=== PATIENT | male | born 1960 | race Caucasian/White ===

== ENCOUNTER 2017-02-10 01:57 | Emergency (ER) | payer SELFPAY ==
[2017-02-10 02:08] VITALS: BP 106/74; PULSE 84; RESP 16; TEMP 97.9; O2SAT 96
--- NOTE | 2017-02-10 02:09 | EDPHY ---
H & P Time Seen by Provider: 02/10/17 02:06 HPI/ROS: Chief Complaint: Dog bite right calf HPI: 56-year-old male states that about 6 hours ago he was dancing outside of the [employer] when he was bit on the calf by a dog. Does not know the dog or the gaggerman. He was hoping that they would return and he could ask him about the animal but they did not do so. He eventually ended up calling 911 so that he could report this. Denies any fevers or chills. For the ambulating. History of bipolar disorder but does not take any prescription medications but his last tetanus was in the last 10 years. ROS: 10 point Review of Systems is negative except as noted in the HPI. PMH: Bipolar disorder Social History: No smoking, no alcohol, daily marijuana use Family History: non-contributory Physical Exam: Gen: Awake, Alert, No Distress HEENT: Nose: no rhinorrhea Eyes: PERRLA, EOMI Mouth: Moist mucosa Neck: Supple, no JVD Ext: no edema, he is too small approximately 2-3 cm abrasions to the right calf. There are no puncture wounds. There into the dermis. There is no active bleeding. There is no erythema. I have explored them with a swab in the do not extend deep. There is no compartment or muscle tenderness. There is no exposed muscle tissue. Skin: no rash Neuro: CN II-XII intact, Sensation grossly intact, Strength 5/5 in bilateral upper and lower extremities Allergies/Adverse Reactions: No Known Allergies Allergy (Unverified 02/10/17 02:06) Home Medications: Medication Instructions Recorded NK [No Known Home Meds] 02/10/17 Medical Decision Making ED Course/Re-evaluation: 56-year-old male with an abrasion to his right calf which is consistent with possibly dog bite. There are no large puncture wounds. There is a cleaned and irrigated. No indications for antibiotics at this time however I have cautioned him to follow up with the [facility] for recheck in 2-3 days, return for worsening. Departure - Departure Disposition: Home, Routine, Self-Care Clinical Impression: Dog bite, Abrasion Condition: Good Instructions: Animal Bite (ED), Abrasion (ED) Additional Instructions: Follow up at the [facility] in 2-3 days for wound check. Return to the emergency department for increasing redness, discharge from the wound, fevers, chills, worsening pain, or any other concerns. Referrals: [facility],. [Clinic] - As per Instructions
== END 2017-02-10 02:25 | disposition home or self-care (01) ==
DX: S81.851A Open bite, right lower leg, initial encounter (principal); S80.811A Abrasion, right lower leg, initial encounter; W54.0XXA Bitten by dog, initial encounter; Y92.254 Theater (live) as the place of occurrence of the external cause; Y93.41 Activity, dancing